=== PATIENT | male | born 1955 | race African-American/Black ===

== ENCOUNTER 2018-07-01 08:22 | Inpatient (IN) | payer MEDICAID, OTHER ==
[~2018-07-01] VITALS: Ht 172.7 cm; Wt 119.8 kg
[2018-07-01] MEDS ORDERED: PANTOPRAZOLE SODIUM 40 MG/VIAL IV STA (08:55)
[2018-07-01] MEDS ORDERED: ONDANSETRON HCL 4MG/2ML INJ IV STA (08:55)
[2018-07-01] MEDS ORDERED: PANTOPRAZOLE 80 MG in SODIUM CHLORIDE 0.9% 100 ML IV STA (08:55)
[2018-07-01 09:56] LABS: EOSINOPHILS % 0.1 % (0.0-5.0); HEMATOCRIT. 49.9 % (42.0-52.0); HEMOGLOBIN. 17.1 g/dL (14.0-18.0); LYMPHOCYTES % 11.1 % (20.0-50.0); MEAN CORPUSCULAR HEMOGLOBIN 34.2 pg (28.0-32.0); MEAN CORPUSCULAR VOLUME 99.9 fL (80.0-94.0); MEAN PLATELET VOLUME 9.5 fl (7.4-10.4); MONOCYTES % 12.8 % (2.0-8.0); PLATELET 174 x1000/uL (130-400); RED CELL DISTRIBUTION WIDTH 14.3 % (11.6-14.6)
[2018-07-01 10:05] LABS: INR 1.1; PARTIAL THROMBOPLASTIN TIME 28.5 sec (23.4-31.0); PROTHROMBIN TIME 11.1 sec (9.1-11.1)
[2018-07-01 10:48] LABS: CHLORIDE 99 mEq/L (98-107)
[2018-07-01] MEDS ORDERED: GUAIFENESIN 200MG/10ML SUGAR FREE UDC PO PRN (11:30)
[2018-07-01] MEDS ORDERED: ONDANSETRON HCL 4MG/2ML INJ IV PRN (11:30)
[2018-07-01] MEDS ORDERED: CLONIDINE 0.1MG TABLET PO PRN (11:30)
[2018-07-01] MEDS ORDERED: NA PHOS,M-B/NA PHOS,DI-BA ENEMA 118ML PR PRN (11:30)
[2018-07-01] MEDS ORDERED: ACETAMINOPHEN 650MG SUPP PR PRN (11:30)
[2018-07-01] MEDS ORDERED: DOCUSATE SODIUM 100MG CAPSULE PO PRN (11:30)
[2018-07-01] MEDS ORDERED: MAGNESIUM/ALUMINUM HYDROXIDE/SIMETHICONE 30ML UDC PO PRN (11:30)
[2018-07-01] MEDS ORDERED: ACETAMINOPHEN 325MG TABLET PO PRN (11:30)
[2018-07-01] MEDS ORDERED: DIPHENHYDRAMINE 50MG/ML VIAL IV PRN (11:30)
[2018-07-01] MEDS ORDERED: IPRATROPIUM/ALBUTEROL 0.5-3(2.5)MG/3ML NEB INH PRN (11:30)
[2018-07-01] MEDS ORDERED: LORAZEPAM 2MG/ML CPJ IV PRN (11:45)
[2018-07-01 13:37] LABS: CLARITY URINE CLEAR (CLEAR); COLOR URINE DARK YELLOW (YELLOW); KETONES URINE 2+ (NEGATIVE); LEUKOCYTE ESTERASE URINE TRACE (NEGATIVE); NITRITE URINE NEGATIVE (NEGATIVE); OCCULT BLOOD URINE NEGATIVE (NEGATIVE); PH URINE 7.5 (4.5-8.0); PROTEIN URINE 1+ (NEGATIVE); SPECIFIC GRAVITY URINE 1.036 (1.005-1.030)
[2018-07-01 13:55] LABS: *AMPHETAMINES SCREEN URINE NEGATIVE (NEGATIVE); *BARBITURATES SCREEN URINE NEGATIVE (NEGATIVE); *BENZODIAZEPINES SCREEN URINE NEGATIVE (NEGATIVE)
[2018-07-01 13:56] LABS: *COCAINE SCREEN URINE NEGATIVE (NEGATIVE); CANNABINOID URINE SCREEN PRESUMTIVE POSITIVE (NEGATIVE); METHADONE URINE SCREEN PRESUMTIVE POSITIVE (NEGATIVE); OPIATES URINE SCREEN NEGATIVE (NEGATIVE); PHENCYCLIDINE URINE SCREEN NEGATIVE (NEGATIVE)
[2018-07-01 14:59] VITALS: BP 139/79
[2018-07-01 15:02] VITALS: BP 139/79
[2018-07-01 16:00] VITALS: BP 136/86
[2018-07-01] MEDS: NICOTINE 14MG PATCH TD SCH (16:33)
[2018-07-01] MEDS: THIAMINE HCL 100MG TABLET PO SCH (16:33)
[2018-07-01] MEDS: PANTOPRAZOLE SODIUM 40 MG/VIAL IV SCH (16:33)
[2018-07-01] MEDS ORDERED: INFLUENZA VIRUS VACCINE(AFLURIA) 0.5ML SYR IM ONE (17:00)
[2018-07-01] MEDS: DEXT 5%/0.45% NACL 1000ML 1,000 ML IV SCH (17:26)
[2018-07-01 20:00] VITALS: BP 134/79
[2018-07-01] MEDS: SODIUM CHLORIDE 0.9% INJ 3ML FLUSH IVF SCH (20:00)
[2018-07-01] MEDS: AMLODIPINE 5MG TABLET PO SCH ×2 (20:15→20:16)
[2018-07-02] VITALS: BP 133/73
[2018-07-02 04:00] VITALS: BP 111/69
[2018-07-02] MEDS: DEXT 5%/0.45% NACL 1000ML 1,000 ML IV SCH ×2 (04:16→20:48)
[2018-07-02] MEDS: SODIUM CHLORIDE 0.9% INJ 3ML FLUSH IVF SCH ×3 (05:52→21:20)
[2018-07-02 07:14] LABS: BASOPHILS % 0.5 % (0.0-2.0); EOSINOPHILS % 1.3 % (0.0-5.0); HEMATOCRIT. 43.2 % (42.0-52.0); HEMOGLOBIN. 14.9 g/dL (14.0-18.0); LYMPHOCYTES % 17.9 % (20.0-50.0); MEAN CORPUSCULAR HEMOGLOBIN 34.2 pg (28.0-32.0); MEAN CORPUSCULAR VOLUME 98.8 fL (80.0-94.0); MEAN PLATELET VOLUME 9.1 fl (7.4-10.4); NEUTROPHILS % 66.3 % (40.0-76.0); PLATELET 134 x1000/uL (130-400); RED BLOOD CELL COUNT 4.37 mill/uL (4.7-6.1); RED CELL DISTRIBUTION WIDTH 13.8 % (11.6-14.6)
[2018-07-02 07:29] LABS: CHLORIDE 102 mEq/L (98-107)
[2018-07-02 07:54] LABS: LDL CHOLESTEROL 80 mg/dL (5-100)
[2018-07-02 07:58] LABS: HDL CHOLESTEROL 59 mg/dL (40-59)
[2018-07-02 08:00] VITALS: BP 133/75
[2018-07-02] MEDS: THIAMINE HCL 100MG TABLET PO SCH (09:09)
[2018-07-02] MEDS: FOLIC ACID 1MG TABLET PO SCH (09:09)
[2018-07-02] MEDS: NICOTINE 14MG PATCH TD SCH (09:09)
[2018-07-02] MEDS: PANTOPRAZOLE SODIUM 40 MG/VIAL IV SCH (09:09)
[2018-07-02] MEDS: AMLODIPINE 5MG TABLET PO SCH ×2 (09:10→21:20)
[2018-07-02 12:00] VITALS: BP 115/73
[2018-07-02] MEDS ORDERED: POTASSIUM CHLORIDE 20MEQ TABLET SR PO NR (13:30)
[2018-07-02] MEDS: ACETAMINOPHEN 650MG/20.3ML UDC GT PRN (14:02)
[2018-07-02 16:00] VITALS: BP 129/81
[2018-07-02 20:00] VITALS: BP 121/77
[2018-07-03] VITALS: BP 105/48
[2018-07-03 04:00] VITALS: BP 114/58
[2018-07-03] MEDS: SODIUM CHLORIDE 0.9% INJ 3ML FLUSH IVF SCH ×2 (06:05→13:33)
[2018-07-03 08:00] VITALS: BP 123/75
[2018-07-03] MEDS: THIAMINE HCL 100MG TABLET PO SCH (09:34)
[2018-07-03] MEDS: FOLIC ACID 1MG TABLET PO SCH (09:34)
[2018-07-03] MEDS: PANTOPRAZOLE SODIUM 40 MG/VIAL IV SCH (09:34)
[2018-07-03] MEDS: NICOTINE 14MG PATCH TD SCH (09:34)
[2018-07-03] MEDS: AMLODIPINE 5MG TABLET PO SCH ×2 (09:35→21:38)
[2018-07-03 12:00] VITALS: BP 140/86
[2018-07-03] MEDS: ACETAMINOPHEN 650MG/20.3ML UDC GT PRN (12:08)
[2018-07-03] MEDS: DEXT 5%/0.45% NACL 1000ML 1,000 ML IV SCH (13:19)
[2018-07-03 16:00] VITALS: BP 150/100
[2018-07-03 20:08] VITALS: BP 124/73
[2018-07-04] VITALS: BP 118/66
[2018-07-04 04:30] VITALS: BP 107/69
[2018-07-04] MEDS: SODIUM CHLORIDE 0.9% INJ 3ML FLUSH IVF SCH (06:21)
[2018-07-04] MEDS: DEXT 5%/0.45% NACL 1000ML 1,000 ML IV SCH (06:21)
[2018-07-04 08:00] VITALS: BP 113/62
[2018-07-04] MEDS: FOLIC ACID 1MG TABLET PO SCH (09:07)
[2018-07-04] MEDS: PANTOPRAZOLE SODIUM 40 MG/VIAL IV SCH (09:07)
[2018-07-04] MEDS: THIAMINE HCL 100MG TABLET PO SCH (09:08)
[2018-07-04] MEDS: NICOTINE 14MG PATCH TD SCH (09:08)
[2018-07-04] MEDS: AMLODIPINE 5MG TABLET PO SCH (09:08)
[2018-07-04] MEDS ORDERED: PANT40SU MT (12:02)
[2018-07-04 12:30] LABS: BASOPHILS % 0.6 % (0.0-2.0); EOSINOPHILS % 1.1 % (0.0-5.0); HEMATOCRIT. 44.6 % (42.0-52.0); HEMOGLOBIN. 15.3 g/dL (14.0-18.0); LYMPHOCYTES % 18.3 % (20.0-50.0); MEAN CORPUSCULAR HEMOGLOBIN 34.2 pg (28.0-32.0); MEAN CORPUSCULAR VOLUME 99.7 fL (80.0-94.0); MONOCYTES % 12.6 % (2.0-8.0); NEUTROPHILS % 67.4 % (40.0-76.0); PLATELET 135 x1000/uL (130-400); RED BLOOD CELL COUNT 4.47 mill/uL (4.7-6.1); RED CELL DISTRIBUTION WIDTH 13.6 % (11.6-14.6)
[2018-07-04 12:36] LABS: INR 1.2; PARTIAL THROMBOPLASTIN TIME 29.3 sec (23.4-31.0); PROTHROMBIN TIME 11.6 sec (9.1-11.1)
[2018-07-04 12:52] LABS: CHLORIDE 109 mEq/L (98-107)
[2018-07-04 13:00] LABS: PHOSPHORUS 3.4 mg/dL (2.5-4.9)
[2018-07-04 13:02] LABS: TOTAL IRON BINDING CAPACITY 265 ug/dL (250-450)
[2018-07-04 13:18] LABS: FERRITIN 1168 ng/mL (22-322)
[2018-07-04 13:28] LABS: VITAMIN B12 SERUM 403 pg/mL (211-911)
[2018-07-04 13:29] LABS: HEPATITIS B SURFACE ANTIGEN NEGATIVE
[2018-07-04 13:58] LABS: HEPATITIS A AB IGM NEGATIVE (NEGATIVE)
[2018-07-04 14:05] LABS: FOLIC ACID (FOLATE) SERUM > 20.00 ng/mL (>5.38)
[2018-07-04] MEDS ORDERED: DIPHENHYDRAMINE 50MG/ML VIAL ONE (16:24)
[2018-07-04] MEDS ORDERED: FENTANYL CITRATE/PF 50MCG/ML 2ML VIAL ONE (16:24)
[2018-07-04] MEDS ORDERED: MIDAZOLAM HCL 2 MG/2 ML VIAL ONE ×2 (16:24→16:41)
[2018-07-04] MEDS ORDERED: PROPOFOL 200MG/20ML VIAL IV ONE (16:25)
[2018-07-04] MEDS ORDERED: LIDOCAINE HCL/PF 1% 10 MG/ML 5ML VIAL ONE (16:25)
[2018-07-04] MEDS ORDERED: LABETALOL HCL 5MG/ML VIAL 20ML IV ONE (16:34)
[2018-07-04] MEDS ORDERED: SIMETHICONE 40 MG/0.6 ML 30ML ONE (16:42)
[2018-07-04 19:11] LABS: HEMATOCRIT 42.4 % (42.0-52.0); HEMOGLOBIN 14.7 g/dL (14.0-18.0)
[2018-07-04 20:00] VITALS: BP 130/86
[2018-07-04] MEDS ORDERED: PANTOPRAZOLE SODIUM 40 MG/VIAL IV SCH (21:00)
[2018-07-04 21:55] VITALS: BP 130/86
[2018-07-05] MEDS ORDERED: OMEPRAZOLE 20MG CAPSULE EXTENDED RELEASE PO SCH (06:45)
== END 2018-07-04 22:41 | disposition home or self-care (01) | DRG 241 ==
LOC: ER 08:22 → 5WST 11:07 → EDBEDREQ 11:11 → ENRESERV 13:29
PROVIDERS: ADMIT Family Medicine; ATTEND Family Medicine
PROC: 0D748ZZ Dilation of Esophagogastric Junction, Via Natural or Artificial Opening Endoscopic (ICD-10-PCS; 2018-07-04)
PROC: 0DB68ZX Excision of Stomach, Via Natural or Artificial Opening Endoscopic, Diagnostic (ICD-10-PCS; principal; 2018-07-04 16:30)
DX: K29.71 Gastritis, unspecified, with bleeding (principal); K22.2 Esophageal obstruction; R94.5 Abnormal results of liver function studies; F12.10 Cannabis abuse, uncomplicated; F11.10 Opioid abuse, uncomplicated; Z60.2 Problems related to living alone; F10.20 Alcohol dependence, uncomplicated; B18.2 Chronic viral hepatitis C; F17.210 Nicotine dependence, cigarettes, uncomplicated; I10 Essential (primary) hypertension; K44.9 Diaphragmatic hernia without obstruction or gangrene; Z82.49 Family history of ischemic heart disease and other diseases of the circulatory system
CPT/HCPCS: 36415; 71045; 76700; 80048; 80061; 80076; 80305; 82607; 82728; 82746; 83540; 83550; 83735; 84100; 84484; 85014; 85018; 86705; 86709; 86803; 86850; 86900; 87340; 88305; 88312; 88313; 90686; 96374; 96375; 99291; C9113; J1200; J2250; J2405; J2704; J3010; J3490; J7050

== ENCOUNTER 2019-12-09 08:23 | Emergency (ER) | payer MEDICAID, OTHER ==
[~2019-12-09] VITALS: Ht 177.8 cm; Wt 95.2 kg
[~2019-12-09 08:23] MED LIST: PANT40SU MT
[2019-12-09 08:58] VITALS: BP 179/91
[2019-12-09 09:13] LABS: CHLORIDE 103 mEq/L (98-107)
[2019-12-09 09:17] LABS: BASOPHILS % 1.1 % (0.0-2.0); EOSINOPHILS % 0.3 % (0.0-5.0); HEMATOCRIT. 48.7 % (42.0-52.0); HEMOGLOBIN. 16.7 g/dL (14.0-18.0); LYMPHOCYTES % 11.4 % (20.0-50.0); MEAN CORPUSCULAR HEMOGLOBIN 34.2 pg (28.0-32.0); MEAN CORPUSCULAR VOLUME 99.8 fL (80.0-94.0); MEAN PLATELET VOLUME 8.9 fl (7.4-10.4); MONOCYTES % 9.5 % (2.0-8.0); NEUTROPHILS % 77.7 % (40.0-76.0); PLATELET 176 x1000/uL (130-400); RED BLOOD CELL COUNT 4.88 mill/uL (4.7-6.1)
== END 2019-12-09 10:35 | disposition home or self-care (01) ==
LOC: ER 08:37
DX: R53.1 Weakness (principal); I10 Essential (primary) hypertension
CPT/HCPCS: 36415; 71045; 80053; 81025; 83880; 84484; 85025; 93005; 99285

== ENCOUNTER 2021-03-18 05:42 | Emergency (ER) | payer MEDICAID ==
[~2021-03-18] VITALS: Ht 182.9 cm; Wt 82.0 kg
[2021-03-18 07:48] LABS: CLARITY URINE CLEAR (CLEAR); COLOR URINE YELLOW (YELLOW); PH URINE 5.5 (4.5-8.0); PROTEIN URINE NEGATIVE (NEGATIVE); SPECIFIC GRAVITY URINE 1.012 (1.005-1.030)
[2021-03-18 07:49] LABS: KETONES URINE NEGATIVE (NEGATIVE); LEUKOCYTE ESTERASE URINE NEGATIVE (NEGATIVE); NITRITE URINE NEGATIVE (NEGATIVE); OCCULT BLOOD URINE NEGATIVE (NEGATIVE); UROBILINOGEN URINE 0.2 E.U./dL (0.2-1.0)
[2021-03-18] MEDS ORDERED: HYDROCODONE/ACETAMINOPHEN 5/325MG TABLET PO ONE (08:00)
[2021-03-18 08:43] LABS: BASOPHILS % 0.4 % (0.0-2.0); EOSINOPHILS % 1.1 % (0.0-5.0); HEMATOCRIT. 42.5 % (42.0-52.0); HEMOGLOBIN. 13.9 g/dL (14.0-18.0); LYMPHOCYTES % 10.6 % (20.0-50.0); MEAN CORPUSCULAR HEMOGLOBIN 34.5 pg (28.0-32.0); MEAN CORPUSCULAR VOLUME 105.7 fL (80.0-94.0); MEAN PLATELET VOLUME 8.7 fl (7.4-10.4); MONOCYTES % 8.5 % (2.0-8.0); NEUTROPHILS % 79.4 % (40.0-76.0); PLATELET 147 x1000/uL (130-400); RED BLOOD CELL COUNT 4.02 mill/uL (4.7-6.1); RED CELL DISTRIBUTION WIDTH 22.3 % (11.6-14.6)
[2021-03-18 08:47] LABS: CHLORIDE 113 mEq/L (98-107)
[2021-03-18] MEDS ORDERED: GABA-529 MT (10:18)
[2021-03-18] MEDS ORDERED: POTASSIUM CHLORIDE 10MEQ TABLET SR PO ONE (10:30)
[2021-03-18 11:50] VITALS: BP 157/89
[2021-03-18 12:09] LABS: PLATELET ESTIMATE NORMAL
== END 2021-03-18 11:50 | disposition home or self-care (01) ==
LOC: ER 05:42
DX: G62.9 Polyneuropathy, unspecified (principal); M79.605 Pain in left leg; M25.572 Pain in left ankle and joints of left foot; M79.604 Pain in right leg; I10 Essential (primary) hypertension; M25.571 Pain in right ankle and joints of right foot; Z79.899 Other long term (current) drug therapy
CPT/HCPCS: 36415; 80053; 81003; 83735; 85025; 99285; Z7610

== ENCOUNTER 2021-09-15 15:23 | Emergency (ER) | payer OTHER ==
[~2021-09-15] VITALS: Ht 180.3 cm; Wt 76.0 kg
[~2021-09-15 15:23] MED LIST changes: +GABA-529 MT
[2021-09-15] MEDS ORDERED: ACETAMINOPHEN 325MG TABLET PO ONE (17:45)
[2021-09-15 18:23] LABS: EOSINOPHILS % 1.6 % (0.0-5.0); HEMATOCRIT. 58.6 % (42.0-52.0); HEMOGLOBIN. 19.8 g/dL (14.0-18.0); LYMPHOCYTES % 23.8 % (20.0-50.0); MEAN CORPUSCULAR HEMOGLOBIN 32.6 pg (28.0-32.0); MEAN CORPUSCULAR VOLUME 96.7 fL (80.0-94.0); MEAN PLATELET VOLUME 9.4 fl (7.4-10.4); MONOCYTES % 6.1 % (2.0-8.0); NEUTROPHILS % 67.5 % (40.0-76.0); PLATELET 187 x1000/uL (130-400); RED BLOOD CELL COUNT 6.06 mill/uL (4.7-6.1); RED CELL DISTRIBUTION WIDTH 15.1 % (11.6-14.6)
[2021-09-15 18:29] LABS: CHLORIDE 111 mEq/L (98-107)
[2021-09-15 18:51] LABS: *AMPHETAMINES SCREEN URINE NEGATIVE (NEGATIVE); CANNABINOID URINE SCREEN PRESUMTIVE POSITIVE (NEGATIVE); METHADONE URINE SCREEN NEGATIVE (NEGATIVE); OPIATES URINE SCREEN NEGATIVE (NEGATIVE); PHENCYCLIDINE URINE SCREEN NEGATIVE (NEGATIVE)
[2021-09-15 18:52] LABS: *BARBITURATES SCREEN URINE NEGATIVE (NEGATIVE); *BENZODIAZEPINES SCREEN URINE NEGATIVE (NEGATIVE); *COCAINE SCREEN URINE NEGATIVE (NEGATIVE)
[2021-09-15 21:30] VITALS: BP 130/100
== END 2021-09-15 21:50 | disposition home or self-care (01) ==
LOC: ER 15:23
DX: G62.9 Polyneuropathy, unspecified (principal); I10 Essential (primary) hypertension
CPT/HCPCS: 36415; 73560; 80053; 80305; 83880; 84484; 85025; 99284

== ENCOUNTER 2021-09-29 08:42 | Emergency (ER) | payer OTHER ==
[~2021-09-29] VITALS: Ht 185.4 cm; Wt 73.0 kg
[2021-09-29] MEDS ORDERED: DEXAMETHASONE 4MG/ML 1ML VIAL IM ONE (09:15)
[2021-09-29] MEDS ORDERED: KETOROLAC 60MG/2ML VIAL IM ONE (09:15)
[2021-09-29] MEDS ORDERED: OXYCODONE HCL/ACETAMINOPHEN 5/325MG TABLET PO ONE (09:15)
[2021-09-29] MEDS ORDERED: T3 PO (10:51)
[2021-09-29 13:58] VITALS: BP 126/89
== END 2021-09-29 14:01 | disposition home or self-care (01) ==
LOC: ER 08:42
DX: M54.50 Low back pain, unspecified (principal); G62.9 Polyneuropathy, unspecified; I10 Essential (primary) hypertension
CPT/HCPCS: 72100; 96372; 99284; J1100; J1885